=== PATIENT | female | born 1980 | race Caucasian/White ===

== ENCOUNTER 2017-08-16 16:39 | Emergency (ER) | payer SELFPAY ==
[2017-08-16 16:40] VITALS: BMI 23.6
[2017-08-16 16:47] VITALS: BP 134/85; PULSE 81; RESP 16; TEMP 97.9; O2SAT 98
[2017-08-16] MEDS ORDERED: Oxycodone/Acetaminophen 5/325 mg Tab PO STA (17:16)
[2017-08-16] MEDS ORDERED: Amoxicillin-Clav 875-125 mg Tab PO STA (17:16)
--- NOTE | 2017-08-16 17:20 | ED PDOC ---
Arrival/HPI - General Chief Complaint: ENT Problem Time Seen by Provider: 08/16/17 17:02 Historian: Patient, Family (son/family) EM Caveat: Language Barrier (pt is primarily bolivian speaking) - History of Present Illness Narrative History of Present Illness (Text): 08/16/17 17:20 pt p/w + 3 days onset of nasal swelling/pain, over the last 2 days with worsening symptoms, + congested; noted 2-3 weeks prior with spontaneous nosebleed from both nares; pt states the bleeding was scant and the bleeding lasted for less than a few hours that was off and on bleeding; pt states over the last 2 days the congestion/swelling is causing her to have a harder time to breath through her nose; pt denied fever/chills/sweats, no cp/sob/palpitations, no abd pain, no n/v, no numbness/tingling; pt is able to eat without any difficulties, pt with good appetite. pt denied urinary/bowel changes pt states nasal pain is severe when manipulated, rated pain at 10/10; otherwise pain is 4-5/10 pt denied fall/trauma/sick contact, no travel consultant is here for further eval pt's without other complaints. PCP: NONE pt has a hx of seizures, but does not take any medications (by choice) Time/Duration: < week Symptom Onset: Sudden Symptom Course: Unchanged Quality: Tightness, Cramping Activities at Onset: Rest Context: Home Past Medical History - Provider Review Nursing Documentation Reviewed: Yes - Travel History Have you recently traveled outside [place] w/in the past 3 mons?: No - Past History Past History: No Previous - Infectious Disease Hx of Infectious Diseases: None - Tetanus Immunization Tetanus Immunization: Unknown - Reproductive Menopause: No Currently : No - Past Medical History Past Medical History: No Previous - Cardiac Hx Cardiac Disorders: No - Pulmonary Hx Respiratory Disorders: No - Neurological Hx Neurological Disorder: Yes Hx Seizures: Yes (epilepsy) - HEENT Hx HEENT Disorder: No - Renal Hx Renal Disorder: No - Endocrine/Metabolic Hx Endocrine Disorders: No - Hematological/Oncological Hx Blood Disorders: No - Integumentary Hx Dermatological Disorder: No - Musculoskeletal/Rheumatological Hx Musculoskeletal Disorders: Yes Hx Herniated Disk: Yes - Gastrointestinal Hx Gastrointestinal Disorders: No - Genitourinary/Gynecological Hx Genitourinary Disorders: No - Psychiatric Hx Psychophysiologic Disorder: No Hx Substance Use: No - Past Surgical History Past Surgical History: No Previous - Surgical History Hx Appendectomy: Yes Hx Section: Yes Hx Tubal Ligation: Yes - Anesthesia Hx Anesthesia: Yes Hx Anesthesia Reactions: No Hx Malignant Hyperthermia: No - Suicidal Assessment Feels Threatened In Home Enviroment: No Family/Social History - Physician Review Nursing Documentation Reviewed: Yes Family/Social History: No Known Family HX Smoking Status: Light Smoker < 10 Cigarettes Daily Hx Alcohol Use: Yes (occasional) Frequency of alcohol use: Socially Hx Substance Use: No Hx Substance Use Treatment: No Allergies/Home Meds Allergies/Adverse Reactions: Allergies No Known Allergies Allergy (Verified 08/16/17 16:42) Review of Systems - Review of Systems Constitutional: Normal Eyes: Normal ENT: Epistaxis, Sinus Congestion, Other (nasal pain/swelling, no dishcarge, no gross bleeding) Respiratory: Normal Cardiovascular: Normal Gastrointestinal: Normal Genitourinary Female: Normal Musculoskeletal: Normal Skin: Normal Neurological: Normal. absent: Headache, Dizziness Endocrine: Normal Hemo/Lymphatic: Normal Psychiatric: Normal Physical Exam Vital Signs Reviewed: Yes Vital Signs Temp Pulse Resp BP Pulse Ox 08/16/17 16:43 97.9 F 81 16 134/85 98 Temperature: Afebrile Blood Pressure: Normal Pulse: Regular Respiratory Rate: Normal Appearance: Positive for: Well-Appearing, Non-Toxic, Uncomfortable, Other ( resting in bed, alert/awake, GCS = 15, oriented x 3, uncomfortable, mild distress with pain/during nasal examination; cooperative) Pain Distress: Mild Mental Status: Positive for: Alert and Oriented X 3 - Systems Exam Head: Present: Atraumatic, Normocephalic Pupils: Present: PERRL, Other (no photophobia, sclera anicteric, no nystagmus) Extroacular Muscles: Present: EOMI Conjunctiva: Present: Normal Ears: Present: Normal Mouth: Present: Moist Mucous Membranes, Normal Teeth, Other (uvula/tongue are midline, no exudate/lesions, no drooling/stridor; poor dentitions noted, no dysphonia) Pharnyx: Present: Normal Nose (External): Present: Atraumatic Nose (Internal): Present: Other (+ mild nasal swelling is noted, + diffuse tenderness noted over b/l nares on palpation, no bogginess/no fluctuance noted, no skin induration/erythema noted, no open sores noted; internal b/l nares exam - NO lesions/masses/FB visible on exam of the inferior meatus turbinates, NO SEPTAL HEMATOMA NOTED B/L, slightly erythematous/swollen inferior turbinates noted; no gross bleeding noted b/l, no nasal discharge noted b/l) Neck: Present: Normal Range of Motion, Trachea Midline. No: Meningeal Signs, MIDLINE TENDERNESS Respiratory/Chest: Present: Clear to Auscultation, Good Air Exchange, Other ( CTA b/l, no w/r/r, no accessory muscle use noted). No: Respiratory Distress, Accessory Muscle Use Cardiovascular: Present: Regular Rate and Rhythm, Normal S1, S2. No: Murmurs, Tachycardic Abdomen: Present: Normal Bowel Sounds, Other (well nourished female, no focal tenderness, no masses/rebound/guarding/rigidity, no scott's sign, no mcburney' s point tenderness) Back: Present: Normal Inspection. No: CVA Tenderness, Midline Tenderness Upper Extremity: Present: Normal Inspection, Normal ROM, NORMAL PULSES, Neurovascularly Intact Lower Extremity: Present: Normal Inspection, NORMAL PULSES, Normal ROM, Neurovascularly Intact, Other (+ ambulatory) Neurological: Present: GCS=15, CN II-XII Intact, Speech Normal Skin: Present: Warm, Normal Color, Other (cap refill < 1sec, no ulcerations, no petechiae, no rashes noted) Psychiatric: Present: Alert, Oriented x 3 Medical Decision Making ED Course and Treatment: 08/16/17 17:22 Impression: nose pain/swelling i have consider all the differential diagnosis regarding pt's chief medical complaints/clinical findings, including but are not limited to: nose pain/ swelling A/P: nose pain/swelling - supportive care - observe/reevaluation 08/16/17 [id number] pt is made aware of her medical results pt is encouraged no excessive blowing of her nose pt is encouraged smoking cessation pt is encouraged fluids pt will f/u as directed pt will be discharged home Re-evaluation Time: 17:38 Reassessment Condition: Unchanged - Medication Orders Current Medication Orders: Discontinued Medications Amoxicillin/Clavulanate Potassium (Augmentin 875 Mg-125 Mg Tab) 1 tab PO STAT STA PRN Reason: Protocol Stop: 08/16/17 17:17 Last Admin: 08/16/17 17:24 Dose: 1 tab Oxycodone/Acetaminophen (Percocet 5/325 Mg Tab) 1 tab PO STAT STA Stop: 08/16/17 17:17 Last Admin: 08/16/17 17:25 Dose: 1 tab Disposition/Present on Arrival - Present on Arrival Any Indicators Present on Arrival: No History of DVT/PE: No History of Uncontrolled Diabetes: No Urinary Catheter: No History of Decub. Ulcer: No History Surgical Site Infection Following: None - Disposition Have Diagnosis and Disposition been Completed?: Yes Diagnosis: Nose pain, Swollen nose, Sinusitis Disposition: HOME/ ROUTINE Disposition Time: 17:24 Patient Plan: Discharge Patient Problems: Current Active Problems Problem Status Onset Nose pain Acute Sinusitis Acute Swollen nose Acute Condition: STABLE Discharge Instructions (ExitCare): Nosebleeds, Sinusitis, Adult (DC) Print Language: BURKINAN Additional Instructions: Make sure to see your doctor in 1-2 days DRINK PLENTY OF FLUIDS take your medications as prescribed ENCOURAGE YOU TO STOP SMOKING RETURN TO ED IF worse pain, cant breath, persistent vomiting, high fever >101- 102 for hours, altered behavior, slurr speech, facial changes, focal weakness ( arm/leg or both), unable to urinate, heavy/persistent bleeding, passing out, chest pain, or other medical emergencies Prescriptions: Amoxicillin/Clavulanate [Augmentin 875 MG-125 MG] 1 tab PO BID #27 tab Ibuprofen [Motrin] 600 mg PO QID PRN #30 tab PRN Reason: Pain, Mild (1-3) oxyCODONE/Acetaminophen [Percocet 5/325 mg Tab] 1 tab PO TID PRN #12 tab PRN Reason: Pain, Moderate (4-7) Sodium Chloride [[facility] Saline Nasal Flushing 44 ] 2 spray NS QID PRN #1 bottle PRN Reason: Nasal Congestion [facility] - Follow up with primary [facility] [place] - Follow up with primary [facility] [Outside] - Follow up with primary Dani Sherman DO [Staff Provider] - Follow up with primary Forms: [employer] (Faroese)
== END 2017-08-16 17:38 | disposition home or self-care (01) ==
LOC: ED 16:39
DX: J32.9 Chronic sinusitis, unspecified (principal); J34.89 Other specified disorders of nose and nasal sinuses; F17.210 Nicotine dependence, cigarettes, uncomplicated

== ENCOUNTER 2018-09-24 08:52 | Emergency (ER) | payer OTHER ==
[2018-09-24 08:52] VITALS: BMI 23.6
[2018-09-24 09:19] VITALS: RESP 18; TEMP 98.5
[2018-09-24 09:34] LABS: PH,URINE 6.5 (4.7-8.0); URINE BILIRUBIN NEGATIVE (NEGATIVE); URINE BLOOD NEGATIVE (NEGATIVE); URINE GLUCOSE (UA) NEGATIVE (NEGATIVE); URINE LEUKOCYTE ESTERASE NEGATIVE Leu/uL (NEGATIVE); URINE PROTEIN NEGATIVE mg/dL (<30 mg/dL); URINE UROBILINOGEN 0.2 E.U./dL (<1 E.U./dL)
[2018-09-24 09:35] LABS: URINE APPEARANCE CLEAR (CLEAR); URINE COLOR YELLOW (YELLOW)
[2018-09-24] MEDS ORDERED: Tmp-Smz 800 mg-160 mg DS Tab PO STA (10:08)
[2018-09-24] MEDS ORDERED: Lidocaine 1% Inj (20ml) ONE (10:23)
--- NOTE | 2018-09-24 10:23 | ED PDOC ---
Arrival/HPI - General Chief Complaint: Female Genitourinary Time Seen by Provider: 09/24/18 09:56 Historian: Patient - History of Present Illness Narrative History of Present Illness (Text): 09/24/18 10:25 38-year-old female presents today with a 3-week history of pain and swelling to the right inguinal area. Patient states she is noticed some purulent discharge. Patient states she is taken Tylenol for pain with minimal improvement. Patient states her last dose of Tylenol was yesterday morning. Patient denies fevers or chills. Patient states she has a history of intermittent abscesses that resolved on their own without intervention. Past Medical History - Provider Review Nursing Documentation Reviewed: Yes - Travel History Have you recently traveled outside [place] w/in the past 3 mons?: No - Past History Past History: No Previous - Infectious Disease Hx of Infectious Diseases: None - Tetanus Immunization Tetanus Immunization: Unknown - Past Medical History Past Medical History: No Previous - Cardiac Hx Cardiac Disorders: No - Pulmonary Hx Respiratory Disorders: No - Neurological Hx Neurological Disorder: Yes Hx Seizures: Yes (epilepsy) - HEENT Hx HEENT Disorder: No - Renal Hx Renal Disorder: No - Endocrine/Metabolic Hx Endocrine Disorders: No - Hematological/Oncological Hx Blood Disorders: No - Integumentary Hx Dermatological Disorder: No - Musculoskeletal/Rheumatological Hx Musculoskeletal Disorders: Yes Hx Herniated Disk: Yes - Gastrointestinal Hx Gastrointestinal Disorders: No - Genitourinary/Gynecological Hx Genitourinary Disorders: No - Psychiatric Hx Psychophysiologic Disorder: No Hx Substance Use: No - Past Surgical History Past Surgical History: No Previous - Surgical History Hx Appendectomy: Yes Hx Section: Yes Hx Tubal Ligation: Yes - Anesthesia Hx Anesthesia: Yes Hx Anesthesia Reactions: No Hx Malignant Hyperthermia: No - Suicidal Assessment Feels Threatened In Home Enviroment: No Family/Social History - Physician Review Nursing Documentation Reviewed: Yes Family/Social History: Unknown Family HX Smoking Status: Light Smoker < 10 Cigarettes Daily Hx Alcohol Use: Yes (occasional) Frequency of alcohol use: Socially Hx Substance Use: No Hx Substance Use Treatment: No Allergies/Home Meds Allergies/Adverse Reactions: Allergies No Known Allergies Allergy (Verified 09/24/18 09:19) Review of Systems - Review of Systems Constitutional: absent: Fatigue, Fevers Respiratory: absent: SOB, Cough Cardiovascular: absent: Chest Pain, Palpitations Gastrointestinal: absent: Abdominal Pain, Nausea, Vomiting Genitourinary Female: absent: Dysuria Musculoskeletal: absent: Arthralgias Skin: Abscess (right groin) Neurological: absent: Headache, Dizziness Psychiatric: absent: Anxiety, Depression, Suicidal Ideation Physical Exam Vital Signs Reviewed: Yes Vital Signs Temp Pulse Resp BP Pulse Ox 09/24/18 09:16 98.5 F 83 18 119/83 98 Temperature: Afebrile Blood Pressure: Normal Pulse: Regular Respiratory Rate: Normal Appearance: Positive for: Well-Appearing, Non-Toxic, Comfortable Pain Distress: None Mental Status: Positive for: Alert and Oriented X 3 - Systems Exam Head: Present: Atraumatic Mouth: Present: Moist Mucous Membranes Respiratory/Chest: Present: Clear to Auscultation Cardiovascular: Present: Regular Rate and Rhythm Upper Extremity: Present: Normal ROM Lower Extremity: Present: Normal ROM Neurological: Present: GCS=15, Speech Normal Skin: Present: Warm, Dry, Abscess (there is a 2cm round tender, indurated area of erythema noted to the right groin with central fluctuance.) Lymphatic: Present: Inguinal Adenopathy (+ right sided inguinal adenopathy.) Psychiatric: Present: Alert, Oriented x 3 Medical Decision Making ED Course and Treatment: 09/24/18 11:01 Patient is nontoxic well-appearing in no distress. Vital signs are stable. small area of erythema with fluctuance consistent with abscess. toradol IM keflex po Bactrim DS p.o. I&D performed; dressing applied. pt reassessment; pt is feeling better after medications and procedure. Patient was advised to use warm compresses warm soaks return to the emergency room in 2 days for packing removal. pt was advised to take abx as prescribed. advised patient to return immediately if symptoms worsen persist or if new symptoms develop. pt was advised to f/u with medical clinic and surgeon/wound care center. Patient verbalizes understanding of discharge instructions and need for immediate followup. All aspects of this case were discussed the attending of record. Impression: Abscess, groin Motrin one tablet every 6 hours as needed for pain Keflex 1 capsule 4 times daily x7 days Bactrim DS: One tablet twice daily x7 days Warm compresses and warm soaks frequently Return in 2 days for packing removal and wound check Return immediately if symptoms worsen persist or if new symptoms develop: High fevers, increasing pain, increasing redness, swelling or if any other concerning symptoms develop. Reassessment Condition: Re-examined, Improved - Lab Interpretations Lab Results: Urine Color Yellow (YELLOW) 09/24/18 09:20 Urine Appearance Clear (CLEAR) 09/24/18 09:20 Urine pH 6.5 (4.7-8.0) 09/24/18 09:20 Ur Specific [place] <= 1.005 (1.005-1.035) 09/24/18 09:20 Urine Protein Negative mg/dL (<30 mg/dL) 09/24/18 09:20 Urine Glucose (UA) Negative mg/dL (NEGATIVE) 09/24/18 09:20 Urine Ketones Negative mg/dL (NEGATIVE) 09/24/18 09:20 Urine Blood Negative (NEGATIVE) 09/24/18 09:20 Urine Nitrate Negative (NEGATIVE) 09/24/18 09:20 Urine Bilirubin Negative (NEGATIVE) 09/24/18 09:20 Urine Urobilinogen 0.2 E.U./dL (<1 E.U./dL) 09/24/18 09:20 Ur Leukocyte Esterase Negative Prudencio/uL (NEGATIVE) 09/24/18 09:20 Procedures - Incision and Drainage Site: Right groin Blade Size: 11 I & D Procedure: sterile dressing applied, gauze wick placed Progress: Right groin: Area was prepped and draped in sterile fashion. 2 cc of 1% lidocaine injected locally. Adequate anesthesia. A small incision was made over the central fluctuance. Wound explored for loculations. Moderate amount of purulent discharge released. Quarter inch gauze packing placed. Dressing applied. Patient tolerated procedure well. No complications Disposition/Present on Arrival - Present on Arrival Any Indicators Present on Arrival: No History of DVT/PE: No History of Uncontrolled Diabetes: No Urinary Catheter: No History of Decub. Ulcer: No History Surgical Site Infection Following: None - Disposition Have Diagnosis and Disposition been Completed?: Yes Diagnosis: Abscess, groin Disposition: HOME/ ROUTINE Disposition Time: 10:25 Patient Plan: Discharge Patient Problems: Current Active Problems Problem Status Onset Abscess, groin Acute Condition: GOOD Discharge Instructions (ExitCare): Giuseppe (DC) Print Language: BOLIVIAN Additional Instructions: Motrin one tablet every 6 hours as needed for pain Keflex 1 capsule 4 times daily x7 days Bactrim DS: One tablet twice daily x7 days Warm compresses and warm soaks frequently Return in 2 days for packing removal and wound check Return immediately if symptoms worsen persist or if new symptoms develop: High fevers, increasing pain, increasing redness, swelling or if any other concerning symptoms develop. Prescriptions: Cephalexin [Keflex] 500 mg PO QID #28 capsule Ibuprofen [Motrin] 600 mg PO Q6H PRN #20 tab PRN Reason: pain/fever reduction Sulfamethoxazole/Trimethoprim [Bactrim DS 800 mg-160 mg] 1 tab PO BID #14 tab Referrals: Sam Hatch MD [Staff Provider] - Follow up with primary Lynda Murray MD [Medical Doctor] - Follow up with primary [facility] [Outside] - [place] [facility] [place] - Follow up with primary Forms: [employer] (Salvadorean), WORK NOTE
[2018-09-24 11:17] VITALS: BP 120/80; PULSE 81; O2SAT 100
== END 2018-09-24 11:19 | disposition home or self-care (01) ==
LOC: ED 08:52
DX: L02.214 Cutaneous abscess of groin (principal)
CPT/HCPCS: 10060; 81003; 81025; 96372; 99283; J1885

== ENCOUNTER 2018-09-27 10:04 | Emergency (ER) | payer OTHER ==
[2018-09-27 10:05] VITALS: BMI 23.6
[2018-09-27 10:13] VITALS: BP 100/68; PULSE 84; RESP 18; TEMP 97.8; O2SAT 98
[2018-09-27] MEDS ORDERED: Lidocaine 1% Inj (20ml) IJ STA (10:25)
--- NOTE | 2018-09-27 11:10 | ED PDOC ---
Arrival/HPI - General Chief Complaint: Wound Check Time Seen by Provider: 09/27/18 10:13 Historian: Patient - History of Present Illness Narrative History of Present Illness (Text): 38 y/o female with no significant PMH presents to the ED for wound check of right thigh abscess. Abscess originally drained on 09/24/18, packing was placed at that time. Pt is taking keflex and bactrim as prescribed. States the pain, redness, and induration have overall decreased. Pt has replaced dressing at home but has not removed packing. Denies fever, chills, wound drainage, urinary complaints, vomiting, nausea, abdominal pain, dizziness, or any other associated symptoms. Past Medical History - Provider Review Nursing Documentation Reviewed: Yes - Past History Past History: No Previous - Infectious Disease Hx of Infectious Diseases: None - Tetanus Immunization Tetanus Immunization: Unknown - Past Medical History Past Medical History: No Previous - Cardiac Hx Cardiac Disorders: No - Pulmonary Hx Respiratory Disorders: No - Neurological Hx Neurological Disorder: Yes Hx Seizures: Yes (epilepsy) - HEENT Hx HEENT Disorder: No - Renal Hx Renal Disorder: No - Endocrine/Metabolic Hx Endocrine Disorders: No - Hematological/Oncological Hx Blood Disorders: No - Integumentary Hx Dermatological Disorder: No - Musculoskeletal/Rheumatological Hx Musculoskeletal Disorders: Yes Hx Herniated Disk: Yes - Gastrointestinal Hx Gastrointestinal Disorders: No - Genitourinary/Gynecological Hx Genitourinary Disorders: No - Psychiatric Hx Psychophysiologic Disorder: No Hx Substance Use: No - Past Surgical History Past Surgical History: No Previous - Surgical History Hx Appendectomy: Yes Hx Section: Yes Hx Tubal Ligation: Yes - Anesthesia Hx Anesthesia: Yes Hx Anesthesia Reactions: No Hx Malignant Hyperthermia: No - Suicidal Assessment Feels Threatened In Home Enviroment: No Family/Social History - Physician Review Nursing Documentation Reviewed: Yes Family/Social History: No Known Family HX Smoking Status: Light Smoker < 10 Cigarettes Daily Hx Alcohol Use: Yes (occasional) Hx Substance Use: No Hx Substance Use Treatment: No Allergies/Home Meds Allergies/Adverse Reactions: Allergies No Known Allergies Allergy (Verified 09/27/18 10:13) Review of Systems - Review of Systems Constitutional: Normal. absent: Fevers Respiratory: Normal. absent: SOB, Cough Cardiovascular: Normal. absent: Chest Pain Gastrointestinal: Normal. absent: Nausea, Vomiting Genitourinary Female: Normal. absent: Dysuria, Frequency Musculoskeletal: Normal. absent: Back Pain Skin: Abscess (s/p I&D). absent: Cellulitis Neurological: Normal. absent: Headache, Dizziness Physical Exam Vital Signs Reviewed: Yes Vital Signs Temp Pulse Resp BP Pulse Ox 09/27/18 10:08 97.8 F 84 18 100/68 98 Temperature: Afebrile Blood Pressure: Normal Pulse: Regular Respiratory Rate: Normal Appearance: Positive for: Well-Appearing, Non-Toxic, Comfortable Pain Distress: None Mental Status: Positive for: Alert and Oriented X 3 - Systems Exam Head: Present: Atraumatic, Normocephalic Pupils: Present: PERRL Extroacular Muscles: Present: EOMI Conjunctiva: Present: Normal Mouth: Present: Moist Mucous Membranes Neck: Present: Normal Range of Motion Respiratory/Chest: No: Respiratory Distress Abdomen: No: Tenderness Upper Extremity: Present: Normal Inspection, Normal ROM Lower Extremity: Present: NORMAL PULSES, Normal ROM, Tenderness (over wound), Neurovascularly Intact, Capillary Refill < 2 s, Other (see skin exam). No: Edema, Temperature Abnormalties Neurological: Present: GCS=15, Speech Normal, Motor Func Grossly Intact, Normal Sensory Function, Gait Normal Skin: Present: Warm, Dry, Erythematous (mild around wound), Abscess (s/p 1cm I&D incision, right proximal medial thigh; no fluctuance or warm, packing intact). No: Induration, Hot Psychiatric: Present: Alert, Oriented x 3, Normal Insight, Normal Concentration, Normal Affect, Normal Mood Medical Decision Making ED Course and Treatment: 10:43 Initial Plan: * Packing Removal * Reassess and Disposition Pt unable to tolerate flushing or packing removal without local anesthesia. Given toradol 60mg IM. Area cleaned with betadine and anesthetized with 3cc 1% lidocaine without epi. Packing removed and wound flushed with 50cc NS. No fluctuance or purulence. Dressed with sterile dressing by me. Patient instructed to continue antibiotics and followup with PMD. Educated on appropriate wound care. Diagnostic testing results and plan of care discussed with patient. Strict instructions given regarding importance of followup, and signs/symptoms to return to ER including worsening pain, drainage, fever, chills, or any other new/worsening symptoms. Pt verbalized understanding of discussion. Patient is A&Ox3, ambulating with steady gait, with vital signs stable for discharge. Encounter translated by nurse Sheppard - Medication Orders Current Medication Orders: Discontinued Medications Ketorolac Tromethamine (Toradol) 60 mg IM STAT STA Stop: 09/27/18 10:22 Lidocaine HCl (Lidocaine 1% (20ml)) 10 ml IJ STAT STA Stop: 09/27/18 10:26 Disposition/Present on Arrival - Present on Arrival Any Indicators Present on Arrival: No History of DVT/PE: No History of Uncontrolled Diabetes: No Urinary Catheter: No History of Decub. Ulcer: No History Surgical Site Infection Following: None - Disposition Have Diagnosis and Disposition been Completed?: Yes Diagnosis: Visit for wound check Disposition: HOME/ ROUTINE Disposition Time: 11:21 Patient Plan: Discharge Condition: STABLE Discharge Instructions (ExitCare): Abscess Incision and Drainage, Wound Care (DC) Print Language: BENGALI Additional Instructions: Continuar los antibiticos segn lo prescrito. Mantenga la herida limpia, seca y cubierta. Puede ducharse, diana no remojarse ni baarse. Despus de la ducha, seque la herida y se cubre. Seguimiento con mdico primario en 2 wan. Regrese a la kimberly de emergencias para cualquier sntoma nuevo / que empeora. Referrals: Lynda Murray MD [Medical Doctor] - Follow up [place] [facility] [place] - Follow up with primary Forms: [employer] (Cypriot), WORK NOTE
== END 2018-09-27 11:33 | disposition home or self-care (01) ==
LOC: ED 10:04
DX: Z48.817 Encounter for surgical aftercare following surgery on the skin and subcutaneous tissue (principal)
CPT/HCPCS: 96372; 99283; J1885